=== PATIENT | male | born 1950 ===

== ENCOUNTER 2017-04-13 13:19 | Inpatient (IN) | payer MEDICARE, OTHER ==
[~2017-04-13] VITALS: Ht 188 cm; Wt 95.6 kg
--- NOTE | ~2017-04-13 | HP ---
PATIENT'S NAME: SOWMYA YOO [facility] AGE: 67 Y [address] ROOM: [address] [place], [place] [address] LOCATION: GPCU ADMIT DATE: 04/13/2017 History & Physical DISCHARGE DATE: FAMILY PHYSICIAN: PHYSICIAN, UNKNOWN ATTENDING PHYSICIAN: RAHEL CARMONA DATE OF SERVICE: CHIEF COMPLAINT: Shortness of breath. HISTORY OF PRESENT ILLNESS: A 67-year-old gentleman with a past medical history of hypertension, taking hydrochlorothiazide at home, also has a history of DVT in the past after surgical treatment for varicose vein was undertaken in 2000 and used Lovenox and Coumadin for 6 months, who presented to [place] [facility] with shortness of breath which woke him up around 2:30 in the morning. He described he took a turn in his bed and moved his right leg, and then suddenly, he started feeling short of breath and had diaphoresis as well. He got up and drank a couple of sips of water which did not relieve, and he paced for a while and then went back to sleep. He also noted that for a couple of days, he had been noticing having increased swelling of his leg, but did not notice any erythema or any tenderness. He is physically very active, but recently he came to [place] to visit the [id number] and had not been so active, and water intake had been also poor. On further inquiry, he denied any chest pain, but did say that there was some tightness associated with shortness of breath at 2:30 in the morning as well. He denied any headache, any dizziness, any palpitations, abdominal pain, burning on urination, constipation, diarrhea, PND, or orthopnea. REVIEW OF SYSTEMS: All other systems reviewed and were negative except what is mentioned in the HPI. PAST MEDICAL HISTORY: 1. Hypertension. 2. History of DVT. 3. History of varicose veins. MEDICATIONS: Only medication at home is hydrochlorothiazide 25 mg p.o. daily. ALLERGIES: NO KNOWN DRUG ALLERGIES. PATIENT'S NAME: SOWMYA YOO [facility] AGE: 67 Y [address] ROOM: [address] [place], [place] [address] LOCATION: GPCU ADMIT DATE: 04/13/2017 History & Physical DISCHARGE DATE: FAMILY PHYSICIAN: PHYSICIAN, UNKNOWN ATTENDING PHYSICIAN: RAHEL CARMONA FAMILY HISTORY: Significant for stroke in father at the age of 69. SOCIAL HISTORY: Never smoker. No alcohol or drug abuse. He lives in [place]. PHYSICAL EXAMINATION: VITAL SIGNS: Blood pressure is 185/78, 82, afebrile, and saturating 95% on room air. GENERAL: No acute distress. Alert and oriented x3. HEENT: Head: Atraumatic, normocephalic. Eyes: Nonicteric. No pallor. Oropharynx: Dry mucous membranes. CARDIOVASCULAR: S1 and S2. No murmurs, gallops, or rubs. LUNGS: Clear to auscultation bilaterally. ABDOMEN: Soft, nontender, and nondistended. Bowel sounds are present. EXTREMITIES: Right extremity does show extensive dilatation of the veins, and there is warmth, more on the right side than the left side. Shania sign is negative. MUSCULOSKELETAL: No muscle tenderness or joint swelling noted. ENDOCRINE: No thyromegaly or myxedema noted. LYMPHATIC: No lymphangiitis or lymphadenopathy noted. LABORATORY AND DIAGNOSTIC DATA: EKG was done at outside hospital which did show sinus rhythm with right bundle- branch block. No previous EKGs present, and it is difficult to say if it is new or old. Lab work was reviewed from outside facility which included CBC and BMP which were only remarkable for a creatinine of 1.7. ASSESSMENT: 1. Very likely deep venous thrombosis resulting into pulmonary embolism. 2. Hypertensive urgency. 3. Varicose veins. 4. Acute kidney injury. PLAN: We are going to admit this patient to the PCU. He had already been given a shot of Lovenox 1.5 mg/kg at the outside hospital on our recommendations. 5000 units of heparin IV has already been given. At this point, we are going to hydrate him so he can go to the CAT scan. In the interim, we will do the EKG, 12-lead, again to see for any changes, and we will also do troponins as well as BNP levels. Stat echocardiography and lower extremity Dopplers will be also undertaken. I discussed the whole situation with the family and also made them aware that if this progresses, he might need other aggressive PATIENT'S NAME: SOWMYA YOO [facility] AGE: 67 Y [address] ROOM: [address] [address] [facility] ADMIT DATE: 04/13/2017 History & Physical DISCHARGE DATE: FAMILY PHYSICIAN: PHYSICIAN, UNKNOWN ATTENDING PHYSICIAN: RAHEL CARMONA measures including tPA. We are going to monitor the serum creatinine and get the CT, PE protocol, to look for the extent of the pulmonary embolism, if there is one. We are also going to take serial troponins as well. Further management will depend on his progress in the hospital. The patient is full code. MD BERONICA ROONEY/dev /[id number] D: 617 T: HISTORY & PHYSICAL
--- NOTE | ~2017-04-13 | DS ---
PATIENT'S NAME: SOWMYA YOO [facility] AGE: 67 Y [address] ROOM: [address] [place], [place] [address] LOCATION: GPCU ADMIT DATE: 04/13/2017 Discharge Summary DISCHARGE DATE: 04/14/2017 FAMILY PHYSICIAN: Physician, Unknown ATTENDING PHYSICIAN: Stewart Ortiz PRINCIPAL DIAGNOSIS: Greater saphenous vein thrombosis. SECONDARY DIAGNOSES: 1. Hypertension. 2. Acute kidney infection. HOSPITAL COURSE: A 67-year-old gentleman with a past medical history of DVT on the right side secondary to varicose vein surgery. He presented to the Emergency Department at an outside facility with shortness of breath and chest pain, which started in the middle of the night. He was transferred here for further medical care. Given the high suspicion of DVT and pulmonary embolism, a CAT scan of the chest was done, which was negative for any acute pulmonary embolism. Doppler of the right extremity was done, which did show greater saphenous vein thrombosis, but did not show any DVT there. This patient was also found to have SHANNON with a creatinine of 1.7 on admission, and he did get the contrast administration after 1 L of fluid administration. A discussion was held with the patient regarding 2 options in the treatment of this greater saphenous vein thrombosis, that one would be to do the compression stocking and do Dopplers in 1 week's time to see if there is any progression of the thrombosis towards any of the deeper veins, or we can do a short course of oral anticoagulation and then follow up with the primary care physician in 4 weeks. I also had a discussion with Oncology on phone without any formal consultation, and they also said that both would be okay. The patient had opted going for oral anticoagulation at this point. He was given more fluid, and on date of discharge, his creatinine improved from 1.8 to 1.5. He was given the prescription of Xarelto for 30 days, and he will need to follow up with primary care physician in 4 weeks, and decision to continue or discontinue or repeating Dopplers will be undertaken at that point. DISCHARGE MEDICATIONS: 1. Hydrochlorothiazide 25 mg p.o. every day. 2. Xarelto 20 mg p.o. daily for 30 days. SUBJECTIVE: On the day of the discharge, no chest pain and no shortness of breath. Tenderness in the legs have decreased. PHYSICAL EXAMINATION: VITAL SIGNS: Reviewed and were stable. HEAD: Atraumatic and normocephalic. CARDIOVASCULAR: S1 and S2. No murmur, gallops, or rubs. PATIENT'S NAME: SOWMYA YOO [facility] AGE: 67 Y [address] ROOM: [place] [address] [facility] AD[facility] DATE: 04/13/2017 Discharge Summary DISCHARGE DATE: 04/14/2017 FAMILY PHYSICIAN: Physician, Unknown ATTENDING PHYSICIAN: Stewart Ortiz LUNGS: Clear to auscultation bilaterally. ABDOMEN: Soft, nontender, and nondistended. Bowel sounds are present. EXTREMITIES: Right extremity does show a superficial vein dilatation throughout the legs, as well as some warmth as compared to the left side. DISCHARGE ACTIVITY: The patient was advised to use compression stockings all the time and as much as he can. DIET: Low-sodium diet. FOLLOWUP: As mentioned above with the primary care physician in 4 weeks. I spent 50 minutes in discharge planning, coordination of care, discussing the treatment options, and explaining the followup and the treatment plan here. STEWART ORTIZ MD BERONICA/modl /[id number] d: 04/14/17 1707 t: 04/18/17 0753, DISCHARGE SUMMARY
--- NOTE | ~2017-04-13 | ECHO ---
Transthoracic Echocardiography Report (TTE) Demographics Patient Name DANY YOO Date of Study 04/13/2017 Patient Number [id number] Visit Number [id number] Date of 1950 Room Number G6[address] Gender Male Number Age 67 year(s) Referring Diana Arellano Timber Management Technician Maria Osbornbree ORTIZ, Physician RVT, RDMS, HARDWARE ENGINEER Physician Interpreting Ruel Garza MD Junior Net Developer Physician Supervising Ordering Diana Arellano MD, MD/MLP Physician Nurse Stress [place] Conclusions Summary Normal LV/RV size and systolic function. LVEF 60-65%. No significant valvular abnormalities. Diastolic flow assessment reveals impaired relaxation consistent with Grade I diastolic dysfunction . No evidence of pericardial effusion. Normal right atrial size. IVC measures 1.9 cm with inspiratory collapse. Procedure Type of Study TTE procedure:2D Echocardiogram, M-Mode, Doppler , Color Doppler. Procedure Date Date: 04/13/2017 Start: 02:23 PM Study Location: Inpatient Portable Technical Quality: Adequate visualization Additional Indications:Probable Pulmonary Embolus; SOB. Appropriate Use Criteria: 9 Patient Status: STAT HR: 58 bpm BP: 186/83 mmHg M-Mode/2D Measurements LV Diastolic Dimension: 4.08 cm LV Systolic Dimension: 2.37 cm LV Septum Diastolic: 1.23 cm LV PW Diastolic: 1.15 cm AO Root Dimension: 3.3 cm Cardiac Output: 4.82 l/min AV Cusp Separation: 2.3 cm RV Diastolic Dimension: 3.22 cm LA volume: 38 ml LVOT: 2.3 cm RV Base: 3.76 cm LVOT VTI: 20 cm RV Mid: 3.5 cm LV Stroke volume: 83.05 ml TAPSE: 3.3 cm TDI-S': 17 cm/s Doppler Measurements AV Peak Velocity: 1.06 m/s MV Peak E-Wave: 0.88 m/s AV Peak Gradient: 4.49 mmHg MV Peak A-Wave: 1.11 m/s AV Mean Gradient: 3 mmHg MV E/A Ratio: 0.8 LVOT Peak Velocity: 0.85 m/s MV Deceleration Time: 264 msec PV Peak Velocity: 0.88 m/s PV Peak Gradient: 3.07 mmHg E' Septal Velocity: 0.07 m/s A' Septal Velocity: 0.12 m/s E' Lateral Velocity: 0.1 m/s A' Lateral Velocity: 0.14 m/s Findings Left Ventricle The left ventricle is normal in size . Diastolic assessment reveals Grade I diastolic dysfunction. Mild concentric left ventricular hypertrophy. Right Ventricle Normal right ventricle structure and function. Left Atrium Normal left atrial size. Right Atrium Normal right atrial size. IVC measures 1.9 cm with inspiratory collapse. Mitral Valve Normal mitral valve structure and function. Aortic Valve Normal aortic valve structure and function. Tricuspid Valve Normal tricuspid valve structure and function. Insufficient tricuspid regurgitant waveform to assess pulmonary pressures. Pulmonic Valve Trivial pulmonic valve regurgitation by color Doppler. Normal pulmonic valve structure and function. Pericardial Effusion No evidence of pericardial effusion. Miscellaneous Visualized portions of the aortic root and ascending aorta appear normal in size. Pleural Effusion No evidence of pleural effusion. Signature dtt: GIOVANNA MCCURDY dtd: 04/13/17 1423 Physician Self Edit
--- NOTE | ~2017-04-13 | ENPV ---
Vascular Lower Extremities DVT Study Procedure Demographics Patient Name SOWMYA YOO Date of Study 04/13/2017 Patient Number [id number] Gender Male Date of 1950 Age 67 Visit Number [id number] Height 74 Accession Number [id number] Weight 215 Referring Interpreting Onel King MD Physician Physician Physician Dylan Arellano Phone Screener Physician Thermostat Repairer Rohith Rivas BS, RT Conclusions Summary No evidence of deep vein thrombosis or superficial thrombophlebitis in the lower extremities bilaterally . There is thrombus in the right greater saphenous vein. Patient states previous right greater saphenous stripping years ago. Procedure Type of Study: Veins:Lower Extremities DVT Study, Venous Duplex Lower Extremity Bilateral. Indications for Study:Swelling of Limb. Patient Status:Routine. Study Location:Inpatient Portable. Technical Quality:Adequate visualization. - Preliminary reported to:Dr. Ortiz. Velocities are measured in cm/s ; Diameters are measured in cm Right Lower Extremities DVT Study Measurements Right 2D and Doppler Measurements + + + + +------+------+ + !Location !Visualized!Compressibility!Thrombosis!Signal!Reflux!Reflux ! ! ! ! ! ! ! !(sec) ! + + + + +------+------+ + !GSV Thigh !Yes !No !Sub-acute ! ! ! ! + + + + +------+------+ + !Common !Yes !Yes !None !Phasic!No ! ! !Femoral ! ! ! ! ! ! ! + + + + +------+------+ + !Prox !Yes !No !None !Phasic!No ! ! !Femoral ! ! ! ! ! ! ! + + + + +------+------+ + !Mid Femoral!Yes !Yes !None !Phasic!No ! ! + + + + +------+------+ + !Dist !Yes !Yes !None !Phasic!No ! ! !Femoral ! ! ! ! ! ! ! + + + + +------+------+ + !Popliteal !Yes !Yes !None !Phasic!No ! ! + + + + +------+------+ + !Gastroc !Yes !Yes !None !Phasic!No ! ! + + + + +------+------+ + !PTV !Yes !Yes !None !Phasic!No ! ! + + + + +------+------+ + !Peroneal !Yes !Yes !None !Phasic!No ! ! + + + + +------+------+ + Left Lower Extremities DVT Study Measurements Left 2D and Doppler Measurements + + + + +------+------+ + !Location !Visualized!Compressibility!Thrombosis!Signal!Reflux!Reflux ! ! ! ! ! ! ! !(sec) ! + + + + +------+------+ + !GSV Thigh !Yes !Yes !None !Phasic!No ! ! + + + + +------+------+ + !Common !Yes !Yes !None !Phasic!No ! ! !Femoral ! ! ! ! ! ! ! + + + + +------+------+ + !Prox !Yes !Yes !None !Phasic!No ! ! !Femoral ! ! ! ! ! ! ! + + + + +------+------+ + !Mid Femoral!Yes !Yes !None !Phasic!No ! ! + + + + +------+------+ + !Dist !Yes !Yes !None !Phasic!No ! ! !Femoral ! ! ! ! ! ! ! + + + + +------+------+ + !Popliteal !Yes !Yes !None !Phasic!No ! ! + + + + +------+------+ + !Gastroc !Yes !Yes !None !Phasic!No ! ! + + + + +------+------+ + !PTV !Yes !Yes !None !Phasic!No ! ! + + + + +------+------+ + !Peroneal !Yes !Yes !None !Phasic!No ! ! + + + + +------+------+ + Signature dtt: THELMA DEL REAL dtdemian: 04/13/17 1357 Physician Akil Yan
[2017-04-13 14:35] LABS: BASOPHIL % 0.6 %; EOSINOPHIL # 0.1 K/uL (0.0-0.5); EOSINOPHIL % 1.5 %; HEMATOCRIT 43.5 % (37.0-53.0); HEMOGLOBIN 14.7 g/dL (11.0-16.0); IMMATURE GRANULOCYTE % 0.1 %; LYMPHOCYTE # 1.6 K/uL (0.8-4.0); LYMPHOCYTE % 23.2 %; MCH 32.5 pg (27.0-34.0); MCHC 33.8 gm/dL (32.0-36.5); MCV 96.2 fl (83.0-98.0); MONOCYTE # 0.8 K/uL (0.0-1.0); MONOCYTE % 11.2 %; MPV 10.4 fl (9.4-12.4); NEUTROPHIL # (ANC) 4.3 K/uL (1.4-9.0); NEUTROPHIL % 63.4 %; NRBC % 0 /100WBC (0-0.00); PLATELET COUNT 244 K/uL (150-450); RBC 4.52 M/uL (3.50-5.50); RDW-CV 13.4 % (11.9-14.6); WBC 6.8 K/uL (4.0-11.0)
[2017-04-13] MEDS ORDERED: HYDRODIURIL25 MG PO (14:51)
[2017-04-13 14:54] LABS: ALBUMIN 3.7 gm/dL (3.5-5.0); ANION GAP 10.5 (10.0-19.0); CALCIUM 8.9 mg/dL (8.5-10.5); CREATININE 1.7 mg/dL (0.6-1.3); POTASSIUM 3.5 mMol/L (3.7-5.1); TOTAL BILIRUBIN 0.4 mg/dL (0.0-1.5); TOTAL PROTEIN 7.4 g/dL (6.0-8.4)
[2017-04-14 10:22] LABS: ANION GAP 9.6 (10.0-19.0); CALCIUM 9.1 mg/dL (8.5-10.5); CREATININE 1.8 mg/dL (0.6-1.3); POTASSIUM 3.6 mMol/L (3.7-5.1)
[2017-04-14 14:28] LABS: ANION GAP 9.8 (10.0-19.0); CALCIUM 8.9 mg/dL (8.5-10.5); CREATININE 1.5 mg/dL (0.6-1.3); POTASSIUM 3.8 mMol/L (3.7-5.1)
[2017-04-14] MEDS ORDERED: XARELTO20 MG PO (15:12)
== END 2017-04-14 15:30 | disposition disaster alternative care site (69) | DRG 300 ==
LOC: GPCU 13:19
PROVIDERS: ADMIT Internal Medicine
DX: I82.811 Embolism and thrombosis of superficial veins of right lower extremity (principal); N17.9 Acute kidney failure, unspecified; I10 Essential (primary) hypertension; I83.90 Asymptomatic varicose veins of unspecified lower extremity; I16.0 Hypertensive urgency
CPT/HCPCS: J1650; J7120; Q9967